=== PATIENT | female | born 1940 | race Caucasian/White ===

== ENCOUNTER 2017-01-20 08:25 | Emergency (ER) | payer MEDICARE, OTHER ==
[2017-01-20] MEDS ORDERED: HYDROmorphone 2 MG/ML SDV IM ONE (09:13)
[2017-01-20] MEDS ORDERED: Ondansetron 4 MG Tab.DIS PO ONE (09:13)
[2017-01-20] MEDS ORDERED: Ketorolac 30 MG/ML SDV IM ONE (09:20)
--- NOTE | 2017-01-20 11:48 | CR ---
INDICATION: Fall, injury, pain. LEFT SHOULDER: Five images of the left shoulder in three projections revealed a comminuted oblique fracture through the proximal humeral metaphysis and shaft , with medial angulation at the fracture site and producing slight offset of the medialmost proximal fracture fragment of approximately 1 cm. Somewhat demineralized appearance is suggestive of osteoporosis - correlate clinically. No dislocation was seen. Degenerative changes of moderate degree are noted at the glenohumeral joint. Mild to moderate degenerative changes are noted at the AC joint. IMPRESSION: 1. Comminuted fracture proximal humerus with mild deformity. 2. Osteoarthritis. 3. Probable osteoporosis. MTDD
[2017-01-20 14:57] VITALS: BP 180/77
--- NOTE | 2017-01-20 17:23 | CONS ---
DATE OF CONSULTATION: 01/20/2017 PROBLEM: Left proximal humeral fracture, closed, minimally displaced. HISTORY OF PRESENT ILLNESS: This 76-year-old white female was going out to get her newspaper this morning when she inadvertently slipped on the ice. She landed directly on her left shoulder and noted significant pain. She presented to the emergency room where the above fracture was diagnosed by Dr. John Noguera, whom then consulted me for definitive care and treatment. ALLERGIES: Negative. PAST MEDICAL HISTORY: Cardiac stents. The patient states that when she slipped and fell, she did not hit her head nor lose consciousness. She denies any problems with pain in any location other than her left shoulder. She denies any previous injuries. The patient denies paresthesias. OBJECTIVE: Today, she is resting comfortably in a shoulder immobilizer at this time. There is no deformity of the shoulder. There is no bruising presently of the shoulder. No swelling. Pain on palpation at the fracture site. No pain over the clavicle or AC joint. No pain on palpation in the mid shaft of the humerus with distally to the elbow, former wrist, and fingers. She moves her fingers well. Good radial pulse. Sensation is intact and equal in all dermatomal areas. ASSESSMENT: Her x-rays are examined and diagnosis confirmed as a proximal humeral shaft fracture in acceptable position and alignment. PLAN: We will have her use a shoulder immobilizer and she will return to see me in one week. Shoulder immobilizer is to be on 31/05, except for showering at which time she will lift her arm only enough to get a washcloth in the axillary area (the patient states that she has someone to help with showering and donning and offing the shoulder immobilizer). If there is any questions or problems, she will return to see me, otherwise I will see her back in one week. Prescription for hydrocodone 5/325 #50 one every 3 to 4 hours p.o. p.r.n. as needed. /[id number] PAUL/KINDRA
--- NOTE | 2017-01-21 05:04 | ER ---
DATE SEEN: 01/20/2017 CHIEF COMPLAINT: Left shoulder pain. HISTORY OF PRESENT ILLNESS: This 76-year-old stepped outside the house and slipped on the cement and fell on her left side and has moderate shoulder pain without loss of sensation in the left upper extremity. SOCIAL HISTORY: She is a smoker of approximately 14 pack years (quarter pack for the last 56 years). ALLERGIES: Penicillin. PAST MEDICAL HISTORY: Status post myocardial infarction with one stent in April of 2015 and documented congestive heart failure. She has had chronic low back pressure problems. No diabetes, hypertension, or other serious illnesses. She had a right PE tube, status post appendectomy 18 years of age, and tonsillectomy at age 6. CURRENT MEDICATIONS: Negative, except for aspirin. /[id number] LS/MODL CONTINUATION: PHYSICAL EXAMINATION: VITAL SIGNS: See chart, not entered as of yet in the chart because the nurse has been very busy. GENERAL: Alert woman, somewhat asthenic (54.4 kilos, approximately 105 pounds), in mild distress. She is well groomed and well dressed. HEENT: PERRLA intact. Pharynx without abnormality. NECK: No thyromegaly or masses. No cervical adenopathy. No tenderness in posterior or anterior neck. Range of motion of neck is normal. LUNGS: Clear without rales or rhonchi. There are a few coarse breath sounds at the posterior bases. No chest wall discomfort with palpation. ABDOMEN: Nontender, no guarding. No abdominal discomfort. EXTREMITIES: Without edema. Deep tendon reflexes hypoactive in upper and lower extremities. Cranial nerves 2 through 12 intact. Oriented x3. Gait appropriate. Not lightheaded with standing. Left upper extremity: There is slight ingress of the shoulder contour immediately below the glenohumeral joint. She moves fingers readily and easily, but has mild discomfort when she moves them. I did not perform ROM of her elbow. She has moderate swelling lateral and inferior to the acromion. Radial and ulnar pulses intact. Capillary refill is intact. X-ray reveals a fracture of the proximal humerus. PLAN: Status has been discussed with Dr. Polanco. The patient is placed in a shoulder immobilizer and will be following up with Dr. Polanco next week. The patient is dispensed 20 tablets of hydrocodone 1/2 to 1 tablet q.4-6 hours p.r.n. pain. Also, Zofran for nausea. She had some nausea today, so she received 4 mg Zofran orally in the ED. The patient was seen at 0854 hours. /[id number] QAMAR/KINDRA ELY
--- NOTE | 2017-01-21 08:26 | ER ---
DATE SEEN: 01/20/2017 CHIEF COMPLAINT: Left shoulder pain. HISTORY OF PRESENT ILLNESS: This 76-year-old stepped outside the house and slipped on the cement and fell on her left side and has moderate shoulder pain without loss of sensation in the left upper extremity. She is a smoker of approximately 14 pack years (quarter pack for the last 56 years). Status post one stent in 04/2015. Has had chronic low back pressure problems. No diabetes, hypertension, or other serious illnesses. No hospitalizations. She denies previous surgery except for the stents. She had a right PE tube, status post appendectomy 18 years of age and tonsillectomy at age 6. /[id number] QAMAR/KINDRA
== END 2017-01-20 11:25 | disposition home or self-care (01) ==
LOC: FB.ED 08:25
DX: S42.295A Other nondisplaced fracture of upper end of left humerus, initial encounter for closed fracture (principal); W18.30XA Fall on same level, unspecified, initial encounter; F17.200 Nicotine dependence, unspecified, uncomplicated; Z95.5 Presence of coronary angioplasty implant and graft; Z88.0 Allergy status to penicillin; I50.9 Heart failure, unspecified; G89.29 Other chronic pain; M54.5 Low back pain
CPT/HCPCS: 73030; 96372; 99283; A9270; J1170; J1885

== ENCOUNTER 2017-01-23 08:57 | Emergency (ER) | payer MEDICARE, OTHER ==
[2017-01-23 09:19] VITALS: BP 155/89
--- NOTE | 2017-01-27 09:44 | ER ---
DATE SEEN: 01/23/2017 TIME SEEN: The patient was seen at 0925. HISTORY OF PRESENT ILLNESS: Kanika was seen by myself, demonstrated to have a proximal, slightly angulated oblique comminuted humeral fracture. Two days ago, she was seen by Dr. Polanco. She has been on hydrocodone, and this has caused nausea. She has had no fever. She has mild constipation. She has mild swelling of forearm and ecchymosis which is new, and mild pain with moving her fingers. See notes regarding past medical history and medications dictated 3 days ago (01/20/2017) by myself. PHYSICAL EXAMINATION: VITAL SIGNS: Blood pressure 155/89, heart rate 89, respirations 18, and oxygen saturation 100%. GENERAL: The patient has mild discomfort. She is 49.895 kilos. HEENT: PERRLA intact. Pharynx without abnormality. NECK: Supple. No bruits. LUNGS: Clear to auscultation without rales or rhonchi. HEART: S1, S2. No murmur. ABDOMEN: Soft. No guarding. No abdominal discomfort. EXTREMITIES: Left upper extremity is in a shoulder immobilizer brace. She has released the lower forearm Velcro patch, and now is resting her forearm out of the patch, resting on her thigh. Mild ecchymosis to the forearm and hand with mild swelling. There is mild tenderness with pressure on the volar forearm and proximal forearm. No dysesthesia. Cap refill is less than 1 second. Radial and ulnar pulses are intact. ASSESSMENT: 1. Normal suffusion of blood between the soft tissue of the fracture site and the post humeral fracture subcutaneous tissue to a more dependent position of the forearm and the hand. No evidence for compartment syndrome. 2. Mild discomfort to the left shoulder, and shoulder immobilizer is satisfactorily stabilizing the fracture. Reassured the patient. I told her this is not unusual for her to have this subcutaneous and fracture discomfort. 3. She feels the nausea is secondary to hydrocodone. Plan: Changing to tramadol 50 mg one t.i.d. p.r.n. for pain and for the nausea. 4. Mild elevation of blood pressure secondary to pain. 5. The patient dismissed to follow up with Dr. Polanco, she will be seeing in 3 days on 01/27/2017. Elevate her arm. She can elevate by lying on her back, and this will elevate her arm onto her chest. At present, there is no subjective crepitance in her left upper arm today. Most likely, this is secondary to the blood loss and the swelling has a "splinting" effect. At present, she does not need a coaptation splint as these fragments are stable. /[id number] QAMAR/KINDRA
== END 2017-01-23 10:55 | disposition home or self-care (01) ==
LOC: FB.ED 08:57
DX: R11.0 Nausea (principal); M25.512 Pain in left shoulder
CPT/HCPCS: 99283

== ENCOUNTER 2018-03-02 09:25 | Emergency (ER) | payer MEDICARE, OTHER ==
[2018-03-02] MEDS ORDERED: Ondansetron 4 MG/2 ML SDV IVPUSH ONE (10:16)
[2018-03-02] MEDS ORDERED: Sodium Chloride 0.9% 1,000 ML IV ONE (10:16)
--- NOTE | 2018-03-02 13:48 | EDM.PDOC ---
ED HPI GENERAL MEDICAL PROBLEM - General Chief Complaint: Genitourinary Problem Stated Complaint: PAIN GROIN RETRUM Time Seen by Provider: 03/02/18 09:25 Source of Information: Reports: Patient History Limitations: Reports: No Limitations - History of Present Illness INITIAL COMMENTS - FREE TEXT/NARRATIVE: 77 y.o.w.f -smoker- came to the ed because of pain at her mid lower abd. for 3 weeks, had multilke w/ups for same. Pt lost weight in the past (pounds?) 4 weeks , has poor appetite, feels nauseated but did not vomit, however. Pt has a h/o HTN. No other acute medical issues. BP 180/77 pulse 76 RR 18 Pulse ox 100% on RA Temp 36.8 Onset Date: 02/09/18 Onset Time: 10:00 Duration: Week(s):, Intermittent Location: Reports: Abdomen, Pelvis Quality: Reports: Same as Previous Episode, Other (blood in urine) Severity: Mild Improves with: Reports: Rest Worsens with: Reports: Movement Context: Reports: Other (pt is on coumadine) Groin & rectal Pain Score (Numeric/FACES): 7 - Related Data Allergies Allergy/AdvReac Type Severity Reaction Status Date / Time Penicillins Allergy Rash Verified 03/02/18 09:29 Home Meds: Home Meds Carvedilol 3.125 mg PO BID 01/23/17 [History] Lisinopril 20 mg PO DAILY 01/23/17 [History] Omeprazole 20 mg PO DAILY 01/23/17 [History] Sotalol HCl [Sotalol] 80 mg PO DAILY 01/23/17 [History] atorvaSTATin [Lipitor] 10 mg PO BEDTIME 01/23/17 [History] Ondansetron [Zofran ODT] 4 mg PO DAILY 03/02/18 [History] Ondansetron [Zofran ODT] 4 mg PO Q6H PRN #20 tab.dis 03/02/18 [Rx] Warfarin Sodium [Jantoven] 1.25 mg MOWEFR 03/02/18 [History] Warfarin Sodium [Jantoven] 2.5 mg SUTUTHSA 03/02/18 [History] Past Medical History Cardiovascular History: Reports: High Cholesterol, GA, Stents Other Cardiovascular History: GA & had 2 stents placed Gastrointestinal History: Reports: GERD Genitourinary History: Reports: UTI, Recurrent [employer] History: Reports: Other OB/BYN History: Musculoskeletal History: Reports: Fracture, Other (See Below) Other Musculoskeletal History: hx fx L arm & wrist - Infectious Disease History Infectious Disease History: Reports: Chicken Pox, Measles, Mumps, Scarlet Fever , Other (See Below) Other Infectious Disease History: yellow jaundice when 5y/o - Past Surgical History HEENT Surgical History: Reports: Adenoidectomy, Tonsillectomy Cardiovascular Surgical History: Reports: Carotid Stents GI Surgical History: Reports: Appendectomy Female Surgical History: Reports: None Social & Family History - Family History Family Medical History: Noncontributory - Tobacco Use Smoking Status *Q: Current Every Day Smoker Years of Tobacco use: 30 Packs/Tins Daily: 0.4 Used Tobacco, but Quit: No Second Hand Smoke Exposure: No - Caffeine Use Caffeine Use: Reports: Coffee, Soda, Tea - Alcohol Use Days Per Week of Alcohol Use: 0 - Recreational Drug Use Recreational Drug Use: No - Living Situation & Occupation Living situation: Reports: Occupation: Retired ED ROS GENERAL - Review of Systems Review Of Systems: See Below Constitutional: Reports: Weight Loss HEENT: Reports: No Symptoms Respiratory: Reports: No Symptoms Cardiovascular: Reports: No Symptoms Endocrine: Reports: No Symptoms GI/Abdominal: Reports: Nausea (chronicaly) : Reports: Hematuria, Pain (suprapubic) Musculoskeletal: Reports: No Symptoms Skin: Reports: No Symptoms Neurological: Reports: No Symptoms Psychiatric: Reports: No Symptoms Hematologic/Lymphatic: Reports: No Symptoms Immunologic: Reports: No Symptoms ED EXAM, RENAL/ - Physical Exam Exam: See Below Exam Limited By: No Limitations General Appearance: Alert, Mild Distress, Cachetic Eye Exam: Bilateral Eye: Normal Inspection Ears: Normal External Exam Nose: Normal Inspection Throat/Mouth: Normal Lips, Normal Oropharynx, Normal Voice, No Airway Compromise , Other (dry mocosal membrane) Head: Atraumatic, Normocephalic Neck: Normal Inspection, Supple, Non-Tender Respiratory/Chest: No Respiratory Distress, Lungs Clear, Normal Breath Sounds, No Accessory Muscle Use, Chest Non-Tender Cardiovascular: Normal Peripheral Pulses, Regular Rate, Rhythm, No Edema, No Gallop, No Murmur, No Rub GI/Abdominal: Normal Bowel Sounds, No Organomegaly, No Distention, No Abnormal Bruit, No Mass, Tender (mid lower abdomen) (Female) Exam: Deferred Rectal (Female) Exam: Deferred Back Exam: Normal Inspection, Full Range of Motion Extremities: Normal Inspection, Normal Range of Motion, Non-Tender, No Pedal Edema, Normal Capillary Refill Neurological: Alert, Oriented, CN II-XII Intact, Normal Cognition, Normal Gait, No Motor/Sensory Deficits Psychiatric: Normal Affect, Normal Mood Skin Exam: Warm, Dry, Intact, Normal Color, No Rash Lymphatic: No Adenopathy Course - Vital Signs Text/Narrative:: 77 y.o.w.f -smoker- H/O CAD, on Coumadin, came to the ed because of pain at her mid lower abd. for 3 weeks, had multilke w/ups for same. Pt lost weight in the past (pounds?) 4 weeks, has poor appetite, feels nauseated but did not vomit, however. Pt has a h/o HTN. No other acute medical issues. BP 180/77 pulse 76 RR 18 Pulse ox 100% on RA Temp 36.8 PE: Cachectic 77 y.o.w.f with weight loss, mid lower abd. and chronic intermittent nausea Labs: CBC BMP nl UA pos for hematuria INR 2.51 (on coumadine) GFR 53 Impression: Suprapubic discomfort (cause not determined), micr. Hematuria, H/O CAD Therapeutic INR level, Dehydration Tx: NS, Gerald Reexam: improved Plan: D/C with instructions, pt was asked to quit tobacco use Last Recorded V/S: Last Vital Signs Temp 36.6 C 03/02/18 09:25 Pulse 74 03/02/18 09:25 Resp 18 03/02/18 14:05 BP 122/67 03/02/18 14:05 Pulse Ox 98 03/02/18 14:05 - Orders/Labs/Meds Orders: Active Orders 24 hr Category Date Time Status UA W/MICROSCOPIC [URIN] Stat Lab 03/02/18 09:57 Ordered Labs: Laboratory Tests 03/02/18 03/02/18 03/02/18 Range/Units 09:57 10:30 10:30 WBC 10.7 (4.5-12.0) X10-3/uL RBC 5.17 (3.23-5.20) x10(6)uL Hgb 15.6 H (11.5-15.5) g/dL Hct 47.1 (30.0-51.3) % MCV 91.1 (80-96) fL MCH 30.2 (27.7-33.6) pg MCHC 33.2 (32.2-35.4) g/dL RDW 14.4 (11.5-15.5) % Plt Count 223 (125-369) X10(3)uL MPV 8.9 (7.4-10.4) fL Neut % (Auto) 69.5 (46-82) % Lymph % (Auto) 22.6 (13-37) % [place] % (Auto) 6.0 (4-12) % Eos % (Auto) 0 L (1.0-5.0) % Baso % (Auto) 2 (0-2) % Neut # (Auto) 7.5 (1.6-8.3) # Lymph # (Auto) 2.4 (0.6-5.0) # [place] # (Auto) 0.6 (0.0-1.3) # Eos # (Auto) 0.0 (0.0-0.8) # Baso # (Auto) 0.2 (0.0-0.2) # PT 25.9 H (8.7-11.1) INR 2.51 H (0.89-1.13) Sodium (135-145) mmol/L Potassium (3.5-5.3) mmol/L Chloride (100-110) mmol/L Carbon Dioxide (21-32) mmol/L BUN (7-18) mg/dL Creatinine (0.55-1.02) mg/dL Est Cr Clr Drug Dosing mL/min Estimated GFR (MDRD) (>60) BUN/Creatinine Ratio (9-20) Glucose (80-116) mg/dL Calcium (8.6-10.2) mg/dL Urine Color Yellow (YELLOW) Urine Appearance Slightly cloudy (CLEAR) Urine pH 5.0 (5.0-6.5) Ur Specific [place] 1.020 (1.010-1.025) Urine Protein Negative (NEGATIVE) mg/dL Urine Glucose (UA) Normal (NEGATIVE) mg/dL Urine Ketones Negative (NEGATIVE) mg/dL Urine Occult Blood Large H (NEGATIVE) Urine Nitrite Negative (NEGATIVE) Urine Bilirubin Negative (NEGATIVE) Urine Urobilinogen 1 H (NEGATIVE) mg/dL Ur Leukocyte Esterase Negative (NEGATIVE) Urine RBC 10-20 H (0) Urine WBC 0-5 (0) Ur Squamous Epith Cells Many H (NS,R,O) Urine Bacteria Many H (NS) 03/02/ Range/Units 10:30 WBC (4.5-12.0) X10-3/uL RBC (3.23-5.20) x10(6)uL Hgb (11.5-15.5) g/dL Hct (30.0-51.3) % MCV (80-96) fL MCH (27.7-33.6) pg MCHC (32.2-35.4) g/dL RDW (11.5-15.5) % Plt Count (125-369) X10(3)uL MPV (7.4-10.4) fL Neut % (Auto) (46-82) % Lymph % (Auto) (13-37) % [place] % (Auto) (4-12) % Eos % (Auto) (1.0-5.0) % Baso % (Auto) (0-2) % Neut # (Auto) (1.6-8.3) # Lymph # (Auto) (0.6-5.0) # [place] # (Auto) (0.0-1.3) # Eos # (Auto) (0.0-0.8) # Baso # (Auto) (0.0-0.2) # PT (8.7-11.1) INR (0.89-1.13) Sodium 140 (135-145) mmol/L Potassium 4.0 (3.5-5.3) mmol/L Chloride 103 (100-110) mmol/L Carbon Dioxide 29 (21-32) mmol/L BUN 20 H (7-18) mg/dL Creatinine 1.0 (0.55-1.02) mg/dL Est Cr Clr Drug Dosing 33.74 mL/min Estimated GFR (MDRD) 54 L (>60) BUN/Creatinine Ratio 20.0 (9-20) Glucose 105 (80-116) mg/dL Calcium 9.3 (8.6-10.2) mg/dL Urine Color (YELLOW) Urine Appearance (CLEAR) Urine pH (5.0-6.5) Ur Specific [place] (1.010-1.025) Urine Protein (NEGATIVE) mg/dL Urine Glucose (UA) (NEGATIVE) mg/dL Urine Ketones (NEGATIVE) mg/dL Urine Occult Blood (NEGATIVE) Urine Nitrite (NEGATIVE) Urine Bilirubin (NEGATIVE) Urine Urobilinogen (NEGATIVE) mg/dL Ur Leukocyte Esterase (NEGATIVE) Urine RBC (0) Urine WBC (0) Ur Squamous Epith Cells (NS,R,O) Urine Bacteria (NS) Meds: Medications Discontinued Medications Generic Name Dose Route Start Last Admin Trade Name Freq PRN Reason Stop Dose Admin Sodium Chloride 1,000 mls @ 999 mls/hr 03/02/18 10:16 03/02/18 11:17 Normal Saline IV 03/02/18 11:16 999 mls/hr .BOLUS ONE Administration Ondansetron HCl 8 mg 03/02/18 10:16 03/02/18 11:17 Zofran IVPUSH 03/02/18 10:17 8 mg ONETIME ONE Administration Departure - Departure Time of Disposition: 13:48 Disposition: Home, Self-Care 01 Condition: Good Clinical Impression: Cachexia, Suprapubic pain Hematuria Qualifiers: Hematuria type: unspecified type Qualified Code(s): R31.9 - Hematuria, unspecified - Discharge Information Prescriptions: Ondansetron [Zofran ODT] 4 mg PO Q6H PRN #20 tab.dis PRN Reason: Nausea Instructions: Ondansetron injection, Pelvic Pain, Female, [id number], Dehydration, Adult, [id number]-Xulb, Hematuria, Adult Referrals: Mirian Dejesus PA [Primary Care Provider] - Forms: ED Department Discharge Additional Instructions: Please increase fluids, continue your meds, please follow up with your primary medical doctor/Urologist within the next 3-5 days at clinic, please come back if your symptoms get worse acutely - My Orders Last 24 Hours: My Active Orders 03/02/18 09:57 UA W/MICROSCOPIC [URIN] Stat - Assessment/Plan Last 24 Hours: My Active Orders 03/02/18 09:57 UA W/MICROSCOPIC [URIN] Stat
--- NOTE | 2018-03-02 13:56 | US ---
INDICATION: Suprapubic pain x1 month, weight loss, nausea. PELVIC ULTRASOUND, NON-OB LIMITED: Multiple ultrasonic images were obtained, revealing the bladder to be distended slightly at 126.4 mL. After emptying the bladder, there was only a small residual of 12.9 mL. The urinary bladder had a normal appearance with no definite mass lesions or wall thickening identified. IMPRESSION: Normal bladder ultrasound with minimal residual. No definite bleeding site identified. No etiology for the patient's suprapubic pain identified. Report was called to Dr. Blackburn at 1314 hours, 03/02/2018. MTDD
[2018-03-02 14:19] VITALS: BP 122/67
== END 2018-03-02 14:09 | disposition home or self-care (01) ==
LOC: FB.ED 09:25
DX: R10.30 Lower abdominal pain, unspecified (principal); R31.29 Other microscopic hematuria; R64 Cachexia; I10 Essential (primary) hypertension; E78.00 Pure hypercholesterolemia, unspecified; I25.2 Old myocardial infarction; K21.9 Gastro-esophageal reflux disease without esophagitis; F17.210 Nicotine dependence, cigarettes, uncomplicated; Z88.0 Allergy status to penicillin; Z79.899 Other long term (current) drug therapy
CPT/HCPCS: 36415; 76856; 80048; 81001; 85025; 85610; 96361; 96374; 99284; J2405; J7040

== ENCOUNTER 2018-04-19 06:40 | Day surgery (SDC) | payer MEDICARE, OTHER ==
[2018-04-19] MEDS ORDERED: Sodium Chloride 0.9% 10 ML Syringe FLUSH PRN (06:45)
[2018-04-19] MEDS: Lactated Ringers 1,000 ML IV SCH (07:43)
[2018-04-19] MEDS ORDERED: Midazolam 1 MG/ML 2 ML SDV IV ONE (08:00)
[2018-04-19] MEDS ORDERED: Propofol 200 MG/20 ML SDV IV ONE (08:00)
--- NOTE | 2018-04-19 08:22 | PCM.OPNOTE ---
- General Post-Op/Procedure Note Date of Surgery/Procedure: 04/19/18 Operative Procedure(s): c scope Findings: redundant sigmoid colon Pre Op Diagnosis: constipation. rectal pain Post-Op Diagnosis: redundant colon Anesthesia Technique: MAC Primary Surgeon: Lloyd Lu Anesthesia Provider: Luz Ware Pathology: none Complications: None Condition: Good Free Text/Narrative:: see dictation
[2018-04-19 09:36] VITALS: BP 113/41
--- NOTE | 2018-04-19 09:41 | OR ---
DATE OF OPERATION: 04/19/2018 SURGEON: Lloyd Lu MD PROCEDURE PERFORMED: Colonoscopy. PREOPERATIVE DIAGNOSIS: Rectal pain and constipation. POSTOPERATIVE DIAGNOSIS: Redundant sigmoid colon. INDICATIONS FOR PROCEDURE: This is a 77-year-old white female who is referred with a history of some rectal discomfort as well as some constipation. She has never had a colonoscopy. She was offered and accepted C-scope. DESCRIPTION OF PROCEDURE: After an excellent IV sedation was administered, digital rectal exam was performed. No marked abnormality was noted. The flexible colonoscope was inserted and advanced to the maximum length of the scope. We were able to get to what appeared to be the transverse colon and despite abdominal wall pressure, we really could not advance the scope much farther. She has a very redundant loop of sigmoid colon and rather than risk perforation, we elected to terminate the procedure and evaluate the remainder of the colon with air contrast barium enema. The following findings were noted. Transverse colon was unremarkable. Descending colon was unremarkable. Sigmoid was unremarkable. Rectum was unremarkable. The colon was deflated as the scope was removed. The patient tolerated the procedure well and was taken to recovery room in a good condition. /[id number] /MODL
== END 2018-04-19 10:00 | disposition home or self-care (01) ==
LOC: FB.SDS 06:40
PROVIDERS: ATTEND Surgery
DX: K62.89 Other specified diseases of anus and rectum (principal); K59.00 Constipation, unspecified; K63.89 Other specified diseases of intestine; I25.10 Atherosclerotic heart disease of native coronary artery without angina pectoris; I48.0 Paroxysmal atrial fibrillation; I25.5 Ischemic cardiomyopathy; Z79.01 Long term (current) use of anticoagulants; Z79.82 Long term (current) use of aspirin; Z79.899 Other long term (current) drug therapy; Z87.891 Personal history of nicotine dependence; Z80.0 Family history of malignant neoplasm of digestive organs
CPT/HCPCS: 00811-QZ; J2250; J2704; J7120